=== PATIENT | male | born 1960 | race Caucasian/White ===

== ENCOUNTER → 2017-04-16 | Outpatient (CLI) | payer MEDICARE, MEDICAID ==
[~2017-04-16] MED LIST: LIDOCAINE 1% MDV 20ML VIAL As Ordered
[2017-04-16 09:06] LABS: PLATELET COUNT, AUTOMATED 310 10^3/uL (150-450)
== END ==
LOC: M LAB 08:09
DX: R91.1 Solitary pulmonary nodule (principal); Z79.01 Long term (current) use of anticoagulants
CPT/HCPCS: 77012

== ENCOUNTER → 2017-04-22 | Outpatient (CLI) | payer MEDICARE, MEDICAID | LOC: M SMT 13:08 | DX: J90 Pleural effusion, not elsewhere classified (principal) | CPT/HCPCS: 71046 ==

== ENCOUNTER → 2017-04-22 | Outpatient (CLI) | payer MEDICARE, MEDICAID | LOC: M SMT 13:58 | DX: J90 Pleural effusion, not elsewhere classified (principal) | CPT/HCPCS: 86606 ==